=== PATIENT | male | born 1940 | race Caucasian/White ===

== ENCOUNTER 2016-09-20 16:46 | Emergency (ER) | payer OTHER ==
[~2016-09-20] VITALS: Ht 182.9 cm; Wt 89.8 kg
[2016-09-20 16:53] VITALS: BP 158/85
[2016-09-20] MEDS ORDERED: OXYcodone/APAP 5/325MG TABLET ONE (17:22)
[2016-09-20] MEDS ORDERED: ONDANSETRON ODT 4 MG ONE (17:22)
[2016-09-20] MEDS ORDERED: AMLO2.5T PO (17:29)
[2016-09-20] MEDS ORDERED: ASPI-621 PO (17:29)
[2016-09-20] MEDS ORDERED: SIMV40TA3 PO (17:29)
[2016-09-20] MEDS ORDERED: LEVO112T4 PO (17:29)
[2016-09-20] MEDS ORDERED: ONDANSETRON ODT 4 MG PO ONE (17:30)
[2016-09-20] MEDS ORDERED: OXYcodone/APAP 5/325MG TABLET PO ONE (17:30)
== END 2016-09-20 18:05 | disposition home or self-care (01) ==
LOC: ED 17:45
DX: K02.9 Dental caries, unspecified (principal); I10 Essential (primary) hypertension; E78.5 Hyperlipidemia, unspecified; E78.00 Pure hypercholesterolemia, unspecified
CPT/HCPCS: 99283; Q0162